=== PATIENT | female | born 1965 | race Caucasian/White ===

== ENCOUNTER 2023-07-02 06:21 | Emergency (ER) | payer OTHER ==
[~2023-07-02] VITALS: Ht 167.6 cm; Wt 58.5 kg
[2023-07-02 06:24] VITALS: BP_SYST 115; PULSE 67; RESP 17; TEMP 98; O2SAT 100
[2023-07-02] MEDS ORDERED: IBUP-1969 PO (06:51)
== END 2023-07-02 07:04 | disposition home or self-care (01) ==
LOC: SED 06:21
DX: S82.64XA Nondisplaced fracture of lateral malleolus of right fibula, initial encounter for closed fracture (principal); Z79.899 Other long term (current) drug therapy; X50.1XXA Overexertion from prolonged static or awkward postures, initial encounter; Y93.02 Activity, running; Y92.89 Other specified places as the place of occurrence of the external cause; Y99.8 Other external cause status
CPT/HCPCS: 99283